=== PATIENT | male | born 1965 | race African-American/Black ===

== ENCOUNTER 2016-08-31 10:01 | Emergency (ER) | payer OTHER ==
[~2016-08-31] VITALS: Ht 167.6 cm; Wt 86.0 kg
[~2016-08-31 10:01] MED LIST: ATOR10TA PO; EZET10 PO; MOBI7.5T PO
[2016-08-31 10:03] VITALS: BP 129/80; PULSE 86; RESP 20; TEMP 98.3; O2SAT 96
[2016-08-31] MEDS ORDERED: RANI150C PO (10:43)
--- NOTE | 2016-08-31 10:43 | PD ---
HPI Chief Complaint: Abdominal Pain Time Seen by Provider: 10:26 Travel History International Travel<30 days: No Contact w/Intl Traveler<30days: No Traveled to known affect area: No History of Present Illness HPI Is a 51-year-old man who presents to the emergency department cleaning of some epigastric abdominal pain. He takes meloxicam daily. 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 He states he was using a lot of energy drinks recently. Started getting the pain on . Denies any nausea or vomiting. No fevers or chills. Had a bowel movement this morning that was normal. No history of surgery. He otherwise has been feeling generally well and healthy. History Past Medical History Narrative Medical Hypertension Hyperlipidemia Social History Alcohol Use: No Tobacco Use: Yes (1 PACK EVERY 2 DAYS) Allergies-Medications (Allergen,Severity, Reaction): Coded Allergies: No Known Allergies (Unverified , 11/16/15) Reported Meds & Prescriptions Reported Meds & Active Scripts Active Mobic (Meloxicam) 7.5 Mg Tab 7.5 Mg PO BID Reported Zetia (Ezetimibe) 10 Mg Tab 10 Mg PO DAILY Atorvastatin 10 mg (Atorvastatin Calcium) 10 Mg Tab 10 Mg PO DAILY Review of Systems Except as stated in HPI: all other systems reviewed are Neg Physical Exam Narrative GENERAL: 51-year-old man, well-appearing, no acute distress. SKIN: Focused skin assessment warm/dry. HEAD: Atraumatic. Normocephalic. CARDIOVASCULAR: Regular rate and rhythm. No murmur appreciated. RESPIRATORY: No accessory muscle use. Clear to auscultation. Breath sounds equal bilaterally. GASTROINTESTINAL: Abdomen flat and soft. Minimal epigastric tenderness. No right upper quadrant tenderness. Negative Wright's. MUSCULOSKELETAL: No obvious deformities. No clubbing. No cyanosis. No edema. NEUROLOGICAL: Awake and alert. No obvious cranial nerve deficits. Motor grossly within normal limits. Normal speech. PSYCHIATRIC: Appropriate mood and affect; insight and judgment normal. Data Data Last Documented VS Vital Signs Date Time Temp Pulse Resp B/P Pulse Ox O2 Delivery O2 Flow Rate FiO2 08/31/16 10:26 16 08/31/16 10:03 98.3 86 129/80 96 Room Air Orders Famotidine (Pepcid) (08/31/16 10:45) [facility] Medical Decision Making Medical Screen Exam Complete: Yes Emergency Medical Condition: Yes Differential Diagnosis Gastritis, pancreatitis, reflux, hepatobiliary disease, other Narrative Course Medical decision making 50-year-old male presents emergency department with epigastric abdominal pain. I think this is likely gastritis. He takes NSAIDs regularly. Is been doing a lot of energy drinks and soda. No occult. Recommend NSAIDs cessation, will put him on an H2 paulina, outpatient follow-up. Diagnosis Primary Impression: Gastritis Additional Instructions: Take ranitidine as prescribed. Stop meloxicam. Take acetaminophen as needed for arthritis or back pain. Follow-up with your primary doctor in the next one to 2 weeks. Return to the emergency department for any new or worsening symptoms. Med/Other Pt SpecificInfo: Prescription(s) given Scripts Ranitidine 150 Mg [id number] Mg PO BID #60 CAP Prov:Damian Norton MD 08/31/16 Disposition: 01 DISCHARGE HOME Condition: Stable Damian Norton MD Aug 31, 2016 10:43
[2016-08-31] MEDS ORDERED: FAMOTIDINE 20 MG TAB PO ONE (10:45)
== END 2016-08-31 10:54 | disposition home or self-care (01) ==
LOC: NEPD 10:01
DX: K29.70 Gastritis, unspecified, without bleeding (principal); I10 Essential (primary) hypertension; E78.5 Hyperlipidemia, unspecified; F17.200 Nicotine dependence, unspecified, uncomplicated
CPT/HCPCS: 99282

== ENCOUNTER 2017-06-14 09:39 | Emergency (ER) | payer OTHER ==
[~2017-06-14 09:39] MED LIST changes: +RANI150C PO
[2017-06-14 09:42] VITALS: BP 176/99; PULSE 86; RESP 14; TEMP 97.8; O2SAT 96
[2017-06-14] MEDS ORDERED: TRAM50 PO (10:07)
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
[2017-06-14] MEDS ORDERED: traMADol HCL 50 MG TAB PO ONE (10:15)
[2017-06-14] MEDS ORDERED: EZET10 PO (10:18)
[2017-06-14] MEDS ORDERED: ATOR10TA15 PO (10:18)
[2017-06-14] MEDS ORDERED: GABA100C4 PO (10:18)
== END 2017-06-14 10:58 | disposition home or self-care (01) ==
LOC: NEPD 09:39
DX: M54.5 Low back pain (principal); E78.00 Pure hypercholesterolemia, unspecified; F17.200 Nicotine dependence, unspecified, uncomplicated
CPT/HCPCS: 99283